=== PATIENT | male | born 1980 | race Hispanic/Latino ===

== ENCOUNTER 2019-07-05 19:44 | Emergency (ER) | payer OTHER ==
[2019-07-05] MEDS ORDERED: KETOROLAC TROMETHAMINE 60 MG/2 ML VIAL ONE (20:33)
[2019-07-05] MEDS ORDERED: LIDOCAINE 5% TOPICAL PATCH TP ONE (20:33)
== END 2019-07-05 21:03 | disposition home or self-care (01) ==
LOC: EDH 19:44
DX: S33.5XXA Sprain of ligaments of lumbar spine, initial encounter (principal); Z72.0 Tobacco use; V49.88XA Car occupant (driver) (passenger) injured in other specified transport accidents, initial encounter; Y93.89 Activity, other specified; Y92.488 Other paved roadways as the place of occurrence of the external cause; Y99.8 Other external cause status
CPT/HCPCS: 72100; 96372; 99284; J1885